=== PATIENT | female | born 1980 | race Caucasian/White ===

== ENCOUNTER 2022-02-06 13:52 | Outpatient (REF) | payer OTHER, SELFPAY ==
[2022-02-06 14:36] LABS: Anion Gap 13 (12-20); Blood Urea Nitrogen 10 mg/dL (9-16); Calcium 9.9 mg/dL (8.4-10.2); Carbon Dioxide 27 mmol/L (22-29); Chloride 103 mmol/L (96-108); Estimated Glomerular Filt Rate > 60; Glucose Random 97 mg/dL (60-115); Sodium 139 mmol/L (135-145)
[2022-02-07 08:31] LABS: Lyme Abs Screen <0.90 index
== END 2022-02-06 13:53 | disposition home or self-care (01) ==
LOC: HO.LAB 13:52
PROVIDERS: PCP Internal Medicine; Visit Provider Psychiatry & Neurology Neurology
DX: G62.9 Polyneuropathy, unspecified (principal)
CPT/HCPCS: 36415; 80048; 86617; 86618